=== PATIENT | female | born 1960 | race Caucasian/White ===

== ENCOUNTER 2023-01-25 10:39 | Outpatient (REF) | payer OTHER, SELFPAY ==
--- NOTE | ~2023-01-25 | XR_ITS ---
EXAMINATION: XR RIBS, LEFT CLINICAL INFORMATION: Pleurodynia. COMPARISON: None available. TECHNIQUE: 3 views of the left ribs were obtained. FINDINGS: Lungs are clear. No consolidation, pneumothorax, or pleural effusion. The cardiomediastinal silhouette and pulmonary vasculature are normal. Osseous structures are unremarkable. Ribs are intact. No fractures are identified. A gastric band is noted in place. XR/XR ribs LT min 3V w CXR1V IMPRESSION: Unremarkable examination.
== END 2023-01-25 10:40 | disposition home or self-care (01) ==
LOC: HO.HMGCX 10:39
PROVIDERS: Visit Provider Nurse Practitioner Family
DX: R07.81 Pleurodynia (principal)
CPT/HCPCS: 71101

== ENCOUNTER 2023-05-23 12:15 | Outpatient (AMB) | payer OTHER, SELFPAY ==
--- NOTE | 2023-05-23 13:05 | MHC.OFFWIV ---
Intake Vital Signs 05/23/23 13:08 Height 5 ft 4 in Weight 261 lb BMI 44.8 BP 110/70 Blood Pressure Location Rt brachial Position Sitting Pulse 84 Pulse Source Pulse Oximeter Temp 97.6 F Pulse Oximetry (%) 98 Oxygen Delivery Method Room Air Intake Visit Reasons: EST/cough and shortness of breath/[id number] Intake Note: pt is here today for cough and shortness of breath for 2 weeks Patient Tobacco Use Status: Never used Tobacco Allergies lisinopril Allergy (Intermediate, Verified 05/23/23 13:07) Angioedema amoxicillin [From Augmentin] Adverse Reaction (Mild, Verified 05/23/23 13:07) bodyaches clavulanic acid [From Augmentin] Adverse Reaction (Mild, Verified 05/23/23 13:07) bodyaches Do you need a note to return to daycare/school/sports/work: Yes HPI EST/cough and shortness of breath/[id number] HPI Details 63-year-old female patient presents today with a 2 week history of chest congestion, and wheezing/shortness of breath with exertion. She denies any nasal congestion, fever, chills, GI symptoms. Reports occasionally coughing up clear sputum. Has been using albuterol inhaler p.r.n., and Robitussin DM as needed with moderate effect. Home COVID tests x4 have been negative. She does feel somewhat improved from about 1 week ago, however just wanted to come get checked out. [facility] Social History Patient Tobacco Use Status: Never used Tobacco Review of Systems Const All systems reviewed & are unremarkable except as noted in HPI and below Physical Exam Vital Signs: Last Vital Signs Temp 97.6 F 05/23/23 13:08 Pulse 84 05/23/23 13:08 BP 110/70 05/23/23 13:08 Pulse Ox 98 05/23/23 13:08 Oxygen Delivery Method Room Air 05/23/23 13:08 BMI result Body Mass Index 44.8 Const General: cooperative, healthy appearing and no acute distress HEENT Head: Yes normal to inspection Ears: hearing grossly normal bilaterally, external ears normal and TM's normal bilaterally General nose exam: Normal external nose present and Normal nares present Face and sinus: Yes normal facial exam Mouth: Normal oral and palatal mucosa present and moist mucous membranes Throat: Yes posterior oropharynx normal Neck Neck: Yes no lymphadenopathy Resp Effort & Inspection: normal respiratory effort and able to speak in complete sentences Auscultation: clear to auscultation bilaterally Cardio Jugular venous distension: no JVD Palpation: normal PMI Rate: regular rate Rhythm: regular rhythm Skin General skin exam: no rashes or lesions noted Extrem General: Yes capillary refill normal and Yes no clubbing, cyanosis or edema Psych Appearance: grossly normal Mental Status: mental status grossly normal Speech and movement: Normal speech and movement present Assessment & Plan Assessment & Plan (1) Upper respiratory infection: Code(s): J06.9 - Acute upper respiratory infection, unspecified Qualifiers: URI type: unspecified viral URI Qualified Code(s): J06.9 - Acute upper respiratory infection, unspecified Plan: 63-year-old female patient with symptoms consistent with viral upper respiratory illness. Her LS are clear, and she feels improved from 1 week ago. We discussed ongoing conservative measures for this, which she agrees with. At this point she does not feel she would benefit from antibiotics or prednisone. I advised she continue to utilize her albuterol inhaler as needed, and may continue to take Robitussin. I encouraged she increase hydration and vitamin-C intake, and to return to the clinic or PCP as needed if her symptoms do not improve with time and conservative measures, or certainly if they worsen. She verbalizes understanding and agrees to plan. Coding Level of Care Code Est Pt Level 3 (40762) Diagnoses Viral upper respiratory tract infection J06.9 URI type: unspecified viral URI
[2023-05-23 13:08] VITALS: BP 110/70; PULSE 84; TEMP 36.4; O2SAT 98; BMI 44.8
== END 2023-05-23 13:21 | disposition home or self-care (01) ==
PROVIDERS: Visit Provider Nurse Practitioner Family
DX: J06.9 Acute upper respiratory infection, unspecified (principal)
CPT/HCPCS: 99213